=== PATIENT | female | born 2000 | race Caucasian/White ===

== ENCOUNTER 2021-11-07 16:28 | Emergency (ER) | payer MEDICAID, SELFPAY ==
[2021-11-07 16:30] VITALS: BP 103/73; PULSE 85; RESP 18; TEMP 37.1; O2SAT 98; BMI 30.8
[2021-11-07 16:45] VITALS: BP 103/73; PULSE 85; RESP 18; TEMP 37.1; O2SAT 98; BMI 30.7
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
[2021-11-07 17:04] LABS: UTC Pregnancy Test, Urine Negative (Negative)
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
[2021-11-07 17:49] VITALS: BP 103/73; PULSE 85; RESP 18; TEMP 37.1; O2SAT 98
== END 2021-11-07 17:55 | disposition home or self-care (01) ==
LOC: ER 16:40 → UTC 16:41
PROVIDERS: Emergency Provider Nurse Practitioner; PCP Family Medicine
DX: S20.211A Contusion of right front wall of thorax, initial encounter (principal); R51.9 Headache, unspecified; Z87.891 Personal history of nicotine dependence; V86.55XA Driver of 3- or 4- wheeled all-terrain vehicle (ATV) injured in nontraffic accident, initial encounter; Y93.9 Activity, unspecified
CPT/HCPCS: 70160; 71101; 81025; 99213; G0463